=== PATIENT | female | born 2000 | race Caucasian/White ===

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

== ENCOUNTER → 2020-04-27 | Outpatient (REF) | payer OTHER ==
[2020-05-31 13:44] LABS: CHLAMYDIA DNA AMPLIFICATION POSITIVE (NEGATIVE); GC DNA AMPLIFICATION NEGATIVE (NEGATIVE)
== END ==
LOC: M SFHCPLAZ 12:31
PROVIDERS: ATTEND Nurse Practitioner Women's Health
DX: Z11.3 Encounter for screening for infections with a predominantly sexual mode of transmission (principal)

== ENCOUNTER → 2022-08-05 | Outpatient (REF) | payer OTHER ==
[~2022-08-05] MED LIST changes: -AMIT25TA PO; +AMIT25TA17 PO; -NECO1TAB PO; +NORE1TAB92 PO
== END ==
LOC: M LAB REF 16:21
PROVIDERS: ATTEND Internal Medicine
DX: R19.7 Diarrhea, unspecified (principal)

== ENCOUNTER 2022-09-03 18:07 | Emergency (ER) | payer OTHER ==
[~2022-09-03] VITALS: Ht 165.1 cm; Wt 71.8 kg
[2022-09-03 18:08] VITALS: BP 141/88
[2022-09-03] MEDS ORDERED: SUMA100T2 PO (18:39)
== END 2022-09-03 19:41 | disposition left against medical advice (07) ==
LOC: M ED 18:07
DX: Z53.21 Procedure and treatment not carried out due to patient leaving prior to being seen by health care provider (principal)

== ENCOUNTER → 2022-10-17 | Outpatient (CLI) | payer OTHER ==
[~2022-10-17] MED LIST changes: +SUMA100T2 PO
== END ==
LOC: M PLARAD 08:27
PROVIDERS: ATTEND Internal Medicine
DX: G43.909 Migraine, unspecified, not intractable, without status migrainosus (principal); H43.399 Other vitreous opacities, unspecified eye; J32.0 Chronic maxillary sinusitis

== ENCOUNTER → 2023-07-04 | Outpatient (REF) | payer OTHER ==
[~2023-07-04] MED LIST changes: -AMIT25TA17 PO; +AMIT25TA19 PO
[2023-07-04 12:58] LABS: URINE PREG TEST NEGATIVE (NEGATIVE)
== END ==
LOC: M LAB REF 11:30
PROVIDERS: ATTEND Internal Medicine
DX: R19.7 Diarrhea, unspecified (principal); N91.2 Amenorrhea, unspecified

== ENCOUNTER → 2023-10-31 | Outpatient (CLI) | payer OTHER, BC | LOC: M RAD 09:16 | PROVIDERS: ATTEND Nurse Practitioner Family | DX: R10.31 Right lower quadrant pain (principal) ==

== ENCOUNTER → 2024-12-29 | Outpatient (CLI) | payer BC, SELFPAY ==
[~2024-12-29] MED LIST changes: +ISOVUE-370 76% 100ML VIAL As Ordered ONE
== END ==
LOC: M RAD 16:11
PROVIDERS: ATTEND Neurological Surgery
DX: I67.1 Cerebral aneurysm, nonruptured (principal)